=== PATIENT | female | born 1990 | race Caucasian/White ===

== ENCOUNTER 2016-05-20 22:40 | Emergency (ER) | payer OTHER ==
[2016-05-20 22:45] VITALS: BP 119/72; PULSE 72; RESP 18; TEMP 97.2
--- NOTE | 2016-05-20 23:09 | ED ---
General Adult HPI - General Chief complaint: Psychiatric Symptoms Stated complaint: suicidal Time Seen by Provider: 05/20/16 22:51 Source: patient, family, RN notes reviewed Mode of arrival: ambulatory Limitations: no limitations - History of Present Illness Initial comments: Chief complaint and history of present illness is a 25 show female here with her sister. The patient reports that she is depressed and she wants to . 8 hours ago she took 15-20 Wellbutrin. She does report that she vomited afterwards. Patient reports that she feels worthless. She states her problem started when she was 7 years old when her father by being killed by a drunk wheat combine driver. She reports she's never felt the same since then. After while she became hooked on opiates. He did spend 7 months at a facility for addictions did well there and felt good when she initially left. But now feels depressed again. 4 years ago she was seeing a psychiatrist diagnosed with depression and anxiety and personality disorder. - Related Data Home Medications Medication Instructions Recorded Confirmed ALPRAZolam [Xanax] 1 mg PO BID 05/20/16 05/20/16 buPROPion SR [Wellbutrin Sr] 150 mg PO BID 05/20/16 05/20/16 Allergies Allergy/AdvReac Type Severity Reaction Status Date / Time No Known Allergies Allergy Verified 05/20/16 22:55 Review of Systems ROS Statement: Those systems with pertinent positive or pertinent negative responses have been documented in the HPI. Review of systems. Patient denies any headache or visual acuity changes. Denies any chest pain shortness breath GI/ problems. Patient's emotionally upset, depressed. Suicidal. All systems are reviewed. Past medical problems significant for depression and anxiety and personality disorder. Patient surgeries tonsillectomy. Family history grandfather alcoholic. She has a cousin who is a heroin addict. Patient denies any ALLERGIES. Current medications include Wellbutrin and Xanax. The patient does smoke she was encouraged to stop denies alcohol use. ROS Other: All systems not noted in ROS Statement are negative. Past Medical History Past Medical History: No Reported History History of Any Multi-Drug Resistant Organisms: None Reported Past Surgical History: Tonsillectomy Past Psychological History: Anxiety, Bipolar, Depression Smoking Status: Current every day smoker Past Alcohol Use History: None Reported Past Drug Use History: None Reported General Exam - General Exam Comments Initial Comments: General: The patient is awake and alert, crying, depressed. States she suicidal. States she overdosed on Wellbutrin over 8 hours ago. Vomited afterwards. Answer questions appropriately at this time. Poison control will be consulted. Vital signs show temperature 97.2 pulse 72 respiratory rate 18 pulse ox 90% room air blood pressure 119/72 Eye: Pupils are equal, round and reactive to light, extra-ocular movements are intact ; there is normal conjunctiva bilaterally. No signs of icterus. Ears, nose, mouth and throat: There are moist mucous membranes and no oral lesions. Neck: The neck is supple, there is no tenderness , no anterior cervical lymphadenopathy, thyroid not enlarged. Cardiovascular: There is a regular rate and rhythm. No murmur, rub or gallop is appreciated. Respiratory: Lungs are clear to auscultation, respirations are non-labored, breath sounds are equal. No wheezes, stridor, rales, or rhonchi. Gastrointestinal: Soft, non-distended, non-tender abdomen without masses or organomegaly noted. There is no rebound or guarding present. No CVA tenderness. Bowel sounds are unremarkable. Back: There is no tenderness to palpation in the midline. There is no obvious deformity. No rashes noted. Musculoskeletal: Normal ROM, no tenderness, There is no pedal edema. There is no calf tenderness or swelling. Sensation intact. Pulses equal bilaterally 2+. Neurological: No evidence of a neuro deficits. Walking talking balance good. Alert and oriented. Skin: Skin is warm and dry and no rashes or lesions are noted. Psychiatric: Crying depressed, suicidal. Plan was to overdose and took 15-20 of her Wellbutrin over 8 hours ago. Vomited afterwards. Answering questions appropriately at this time and neurologically intact. Limitations: no limitations Course Vital Signs 05/20/16 22:43 Temperature 97.2 F L Pulse Rate 72 Respiratory 18 Rate Blood Pressure 119/72 O2 Sat by Pulse 98 Oximetry EKG Findings - EKG Comments: EKG Findings:: EKG was done and reviewed at 2308 showing normal sinus rhythm no acute ST elevation, no ectopy, no ischemic changes. Questionable Q wave in lead 3. Rate 79 ME interval was 158 QRS [address] Rinaldi Medical Decision Making - Medical Decision Making Poison control was notified. They recommended EKG every 6 hours for 24 hours watching for widening QRS. The patient be admitted to telemetry with suicide precautions. Disposition Clinical Impression: Overdose of antidepressant, Depression with suicidal ideation Disposition: ADMITTED IP TO THIS HOSP Condition: Serious
[2016-05-20 23:39] LABS: Acetaminophen 20.2 ug/mL; Salicylate <1.0 mg/dL
[2016-05-20] MEDS ORDERED: NALOXONE 0.4 MG/ML 1 ML VIAL IV PRN (23:39)
[2016-05-20 23:44] LABS: Basophils # (A) 0.1 k/uL (0-0.2); Basophils % (A) 1 %; CH 29.9; CHCM 32.1; Eosinophils # (A) 0.6 k/uL (0-0.7); Eosinophils % (A) 10 %; HCT 37.3 % (34.0-46.0); HDW 2.16; HGB 12.2 gm/dL (11.4-16.0); Luc # (Auto) 0.13; Luc % (Auto) 2; Lymphocytes # (A) 2.5 k/uL (1.0-4.8); Lymphocytes % (A) 42 %; MCH 30.5 pg (25.0-35.0); MCHC 32.7 g/dL (31.0-37.0); MCV 93.5 fL (80.0-100.0); Mean Platelet Volume 6.8; Monocytes # (A) 0.3 k/uL (0-1.0); Monocytes % (A) 4 %; Neutrophils # (A) 2.4 k/uL (1.3-7.7); Neutrophils % (A) 40 %; RBC 3.99 m/uL (3.80-5.40); RDW 13.5 % (11.5-15.5); WBC (Perox) 6.18
[2016-05-20] MEDS ORDERED: SODIUM CHLORIDE 0.9% 1,000 ML IV SCH (23:45)
[2016-05-20 23:54] LABS: ALT 70 U/L (9-52); AST 48 U/L (14-36); Alkaline Phosphatase 61 U/L (38-126); Anion Gap 8 mmol/L; Blood Urea Nitrogen 14 mg/dL (7-17); Carbon Dioxide 26 mmol/L (22-30); Chloride 106 mmol/L (98-107); Glucose 103 mg/dL (74-99); Non-African American GFR(MDRD) >60 (>60 ml/min/1.73 sqM); Potassium 3.7 mmol/L (3.5-5.1); Sodium 140 mmol/L (137-145); Total Bilirubin 0.4 mg/dL (0.2-1.3); Total Protein 6.4 g/dL (6.3-8.2)
[2016-05-21] MEDS ORDERED: ALPRAZolam 0.25 MG TAB PO SCH (09:00)
[2016-05-21] MEDS ORDERED: FAMOTIDINE 20 MG TAB PO SCH (09:00)
== END 2016-05-21 00:48 | disposition other institution (70) ==
LOC: EC 22:40 → 6ICU 23:39 → UNDOADMIN 23:39 → EC 05-21 00:48
DX: F32.9 Major depressive disorder, single episode, unspecified (principal); F41.9 Anxiety disorder, unspecified; F17.200 Nicotine dependence, unspecified, uncomplicated; Z79.899 Other long term (current) drug therapy
CPT/HCPCS: 36415; 80053; 82075; 83520; 85025; 93005; 99285

== ENCOUNTER 2016-10-03 15:28 | Emergency (ER) | payer OTHER ==
[2016-10-03 15:36] VITALS: TEMP 98.1
--- NOTE | 2016-10-03 15:54 | ED ---
General Adult HPI - General Chief complaint: Extremity Injury, Lower Stated complaint: foot injury Time Seen by Provider: 10/03/16 15:38 Source: patient, RN notes reviewed Mode of arrival: wheelchair Limitations: no limitations - History of Present Illness Initial comments: Patient 26-year-old female who presents emergency room today with chief complaint of injury to the right ankle that occurred just prior to arrival. She does admit that she was at work when she rolled her right ankle. She does admit to pain to the lateral aspect of the right ankle and down to the right foot. Patient denies any other complaints or symptoms. - Related Data Home Medications Medication Instructions Recorded Confirmed ALPRAZolam [Xanax] 1 mg PO BID 05/20/16 05/20/16 buPROPion SR [Wellbutrin Sr] 150 mg PO BID 05/20/16 05/20/16 Previous Rx's Medication Instructions Recorded Ibuprofen [Motrin] 600 mg PO Q6HR PRN #30 day 10/03/16 Allergies Allergy/AdvReac Type Severity Reaction Status Date / Time hydrocodone Allergy Unknown Verified 10/03/16 16:06 Penicillins Allergy Anaphylaxis Verified 10/03/16 15:36 tramadol Allergy Rash/Hives Verified 10/03/16 16:23 Review of Systems ROS Statement: Those systems with pertinent positive or pertinent negative responses have been documented in the HPI. ROS Other: All systems not noted in ROS Statement are negative. Past Medical History Past Medical History: No Reported History, Seizure Disorder History of Any Multi-Drug Resistant Organisms: None Reported Past Surgical History: Adenoidectomy, Tonsillectomy Past Psychological History: Anxiety, Bipolar, Depression Smoking Status: Current every day smoker Past Alcohol Use History: Rare Past Drug Use History: None Reported General Exam - General Exam Comments Initial Comments: General: The patient is awake and alert, in no distress, and does not appear acutely ill. Neck: The neck is supple, there is no tenderness or JVD. Cardiovascular: There is a regular rate and rhythm. No murmur, rub or gallop is appreciated. Respiratory: Lungs are clear to auscultation, respirations are non-labored, breath sounds are equal. No wheezes, stridor, rales, or rhonchi. Musculoskeletal: Patient does have normal appearance of the right ankle no obvious deformity. No bruising or swelling appreciated. Patient's shows decreased range of motion will plantar dorsiflexion due to pain. Locally tender over the lateral malleolus. No tender over the medial. Tender over the fourth and fifth proximal metatarsals. Patient does have tenderness in the ATFL area sensations are intact pulses equal bilaterally 2+. Neurological: A&O x 3. CN II-XII intact, There are no obvious motor or sensory deficits. Coordination appears grossly intact. Speech is normal. Skin: Skin is warm and dry and no rashes or lesions are noted. Psychiatric: Normal mood and affect. Limitations: no limitations Course Vital Signs 10/03/16 15:33 Temperature 98.1 F Pulse Rate 139 H Respiratory 18 Rate Blood Pressure 114/72 O2 Sat by Pulse 100 Oximetry Medical Decision Making - Medical Decision Making X-rays negative for any acute fracture dislocation. Results were discussed with the patient. She'll be given ibuprofen for pain. Advised to continue ice elevate the affected area. Advised to follow-up with family doctor or orthopedics in the next 7-10 days for repeat x-rays if symptoms persist. Disposition Clinical Impression: Ankle sprain Disposition: HOME SELF-CARE Condition: Good Instructions: Ankle Sprain (ED) Additional Instructions: Please continue to ice elevate the affected area at least 4 times daily for 20 minutes at a time. Please use ankle brace when up and moving around for stability. Please do not sleep and on. Please follow-up with orthopedics or family doctor in 7-10 days if symptoms persist for repeat x-rays. Please return to emergency room for any other concerns. Prescriptions: Ibuprofen [Motrin] 600 mg PO Q6HR PRN #30 day PRN Reason: Pain Referrals: Milton Faith Jr, DO [Primary Care Provider] - 1-2 days Jared Reardon MD [Medical Doctor] - 1-2 days Time of Disposition: 16:28
--- NOTE | 2016-10-03 16:06 | XR ---
EXAMINATION TYPE: XR ankle complete RT, XR foot complete RT DATE OF EXAM: 10/03/2016 CLINICAL HISTORY: Right ankle and foot pain after rolling injury TECHNIQUE: Frontal, lateral and oblique images of the right ankle and foot are obtained. COMPARISON: Right foot x-ray July 23, 2011 FINDINGS: There is no acute fracture/dislocation evident in the right ankle. The ankle mortise appe ars within normal limits. The overlying soft tissue appears unremarkable. There is no acute fracture or dislocation evident in the right foot. The Hayes's toe is redemonstra jeannette. The joint spaces in the right foot are preserved. Overlying soft tissue is unremarkable. IMPRESSION: There is no acute fracture or dislocation in the right ankle or foot.
[2016-10-03] MEDS ORDERED: IBUPROFEN 600 MG TAB PO STA (16:26)
[2016-10-03 16:51] VITALS: BP 126/78; PULSE 102; RESP 20
== END 2016-10-03 16:49 | disposition home or self-care (01) ==
LOC: EC 15:28
DX: S93.401A Sprain of unspecified ligament of right ankle, initial encounter (principal); F32.9 Major depressive disorder, single episode, unspecified; F41.9 Anxiety disorder, unspecified; F17.200 Nicotine dependence, unspecified, uncomplicated; Z79.899 Other long term (current) drug therapy; Z88.0 Allergy status to penicillin; Z88.5 Allergy status to narcotic agent; X50.1XXA Overexertion from prolonged static or awkward postures, initial encounter; Y92.69 Other specified industrial and construction area as the place of occurrence of the external cause; Y93.01 Activity, walking, marching and hiking
CPT/HCPCS: 99283

== ENCOUNTER 2016-11-01 02:20 | Inpatient (IN) | payer MEDICAID, OTHER ==
--- NOTE | 2016-11-01 03:09 | ED ---
General Adult HPI - General Source: patient, RN notes reviewed Mode of arrival: ambulatory Limitations: no limitations <Lore Mosher - Last Filed: 11/01/16 03:07> <Gian Andre - Last Filed: 11/01/16 06:43> - General Chief complaint: Psychiatric Symptoms Stated complaint: Mental Health Time Seen by Provider: 11/01/16 02:40 - History of Present Illness Initial comments: 26-year-old female presents to the emergency department with a chief complaint of suicidal ideation. Patient states that she plan taking pulse 90. Patient states she called her aunt because she felt like she needed help. Patient states that she did not take anything. Patient states she has tried to hurt herself in the past about 5 years ago. Patient states that she was concerned about her thoughts so she thought that she should be evaluated. This time she states that she does not currently have a plan and she is starting to feel better with the supportive family.Patient denies any recent fever, chills, shortness of breath, chest pain, back pain, abdominal pain, nausea vomiting, numbness or tingling, dysuria or hematuria, constipation or diarrhea, headaches or visual changes, or any other current symptoms. (Lore Mosher) - Related Data Home Medications Medication Instructions Recorded Confirmed ALPRAZolam [Xanax] 1 mg PO BID 05/20/16 05/20/16 buPROPion SR [Wellbutrin Sr] 150 mg PO BID 05/20/16 05/20/16 Previous Rx's Medication Instructions Recorded Ibuprofen [Motrin] 600 mg PO Q6HR PRN #30 day 10/03/16 Allergies Allergy/AdvReac Type Severity Reaction Status Date / Time Penicillins Allergy Anaphylaxis Verified 11/01/16 02:26 Review of Systems ROS Other: All systems not noted in ROS Statement are negative. <Lore Mosher - Last Filed: 11/01/16 03:07> ROS Other: All systems not noted in ROS Statement are negative. <Gian Andre - Last Filed: 11/01/16 06:43> ROS Statement: Those systems with pertinent positive or pertinent negative responses have been documented in the HPI. Past Medical History Past Medical History: Seizure Disorder History of Any Multi-Drug Resistant Organisms: None Reported Past Surgical History: Adenoidectomy, Tonsillectomy Past Psychological History: Anxiety, Bipolar, Depression Smoking Status: Current every day smoker Past Alcohol Use History: Rare Past Drug Use History: Opiates <Lore Mosher - Last Filed: 11/01/16 03:07> General Exam Limitations: no limitations General appearance: alert, in no apparent distress ENT exam: Present: normal exam, mucous membranes moist Neck exam: Present: normal inspection. Absent: tenderness, meningismus, lymphadenopathy Respiratory exam: Present: normal lung sounds bilaterally. Absent: respiratory distress, wheezes, rales, rhonchi, stridor Cardiovascular Exam: Present: regular rate, normal rhythm, normal heart sounds. Absent: systolic murmur, diastolic murmur, rubs, gallop, clicks Neurological exam: Present: alert, oriented X3 Psychiatric exam: Present: agitated, suicidal ideation. Absent: homicidal ideation Skin exam: Present: warm, dry, intact <Lore Mosher - Last Filed: 11/01/16 03:07> Medical Decision Making <Lore Mosher - Last Filed: 11/01/16 03:07> <Gian Andre - Last Filed: 11/01/16 06:43> - Medical Decision Making 26-year-old female presents to the emergency department with a chief complaint of suicidal ideation. Patient does not appear septic drinking medical emergencies. Patient is cleared to be evaluated by psychiatry. (Lore Mosher) - Lab Data Lab Results 11/01/16 Range/Units 02:34 Urine Opiates Screen Detected H (NotDetected) Ur Oxycodone Screen Detected H (NotDetected) Urine Methadone Screen Not Detected (NotDetected) Ur Propoxyphene Screen Not Detected (NotDetected) Ur Barbiturates Screen Not Detected (NotDetected) U Tricyclic Antidepress Not Detected (NotDetected) Ur Phencyclidine Scrn Not Detected (NotDetected) Ur Amphetamines Screen Not Detected (NotDetected) U Methamphetamines Scrn Not Detected (NotDetected) U Benzodiazepines Scrn Detected H (NotDetected) Urine Cocaine Screen Detected H (NotDetected) U Marijuana (THC) Screen Detected H (NotDetected) Disposition <Lore Mohser - Last Filed: 11/01/16 03:07> <Gian Andre - Last Filed: 11/01/16 06:43> Clinical Impression: Suicidal ideation, Mood disorder Disposition: ADMITTED IP TO THIS HOSP Condition: Fair
[2016-11-01] MEDS ORDERED: ZIPRASIDONE 20 MG VIAL IM PRN (07:18)
[2016-11-01] MEDS ORDERED: MAGNESIUM HYDROXIDE 2,400 MG/10 ML CUP PO PRN (07:18)
[2016-11-01] MEDS ORDERED: MAG HYDROX/AL HYDROX/SIMETH 30 ML CUP PO PRN (07:18)
[2016-11-01 09:25] LABS: Basophils # (A) 0.1 k/uL (0-0.2); Basophils % (A) 1 %; CH 31.8; CHCM 33.3; Eosinophils # (A) 0.4 k/uL (0-0.7); Eosinophils % (A) 7 %; HCT 37.3 % (34.0-46.0); HDW 2.19; Luc # (Auto) 0.12; Luc % (Auto) 2; Lymphocytes # (A) 2.5 k/uL (1.0-4.8); Lymphocytes % (A) 38 %; MCH 30.9 pg (25.0-35.0); MCHC 32.2 g/dL (31.0-37.0); MCV 95.9 fL (80.0-100.0); Mean Platelet Volume 8.1; Monocytes # (A) 0.4 k/uL (0-1.0); Monocytes % (A) 6 %; Neutrophils % (A) 47 %; RBC 3.89 m/uL (3.80-5.40); RDW 14.8 % (11.5-15.5); WBC 6.5 k/uL (3.8-10.6); WBC (Perox) 6.91
[2016-11-01 10:00] LABS: ALT 29 U/L (9-52); AST 17 U/L (14-36); Alkaline Phosphatase 44 U/L (38-126); Anion Gap 7 mmol/L; Blood Urea Nitrogen 18 mg/dL (7-17); Calcium 8.8 mg/dL (8.4-10.2); Carbon Dioxide 25 mmol/L (22-30); Chloride 110 mmol/L (98-107); Glucose 81 mg/dL (74-99); Non-African American GFR(MDRD) >60 (>60 ml/min/1.73 sqM); Potassium 3.7 mmol/L (3.5-5.1); Sodium 142 mmol/L (137-145); Total Bilirubin 0.2 mg/dL (0.2-1.3); Total Protein 5.8 g/dL (6.3-8.2)
[2016-11-01] MEDS: NICOTINE 14MG/24HR PATCH TRANSDERM SCH ×2 (11:23→13:39)
[2016-11-01] MEDS: DIAZEPAM 5 MG TAB PO SCH ×3 (11:23→22:28)
[2016-11-01] MEDS ORDERED: hydrOXYzine PAMOATE 25 MG CAP PO PRN (14:16)
[2016-11-01] MEDS: ACETAMINOPHEN TAB 325 MG TAB PO PRN ×2 (14:24→19:00)
[2016-11-01] MEDS: LORazepam 1 MG TAB PO PRN (14:24)
[2016-11-01] MEDS: FLUoxetine HCL 10 MG CAP PO SCH (14:27)
[2016-11-01] MEDS: ARIPiprazole 2 MG TAB PO SCH (14:33)
--- NOTE | 2016-11-01 17:44 | P.CONS ---
History of Present Illness - Reason for Consult Consult date: 11/01/16 Advice regarding polysubstance abuse - History of Present Illness This 26-year-old woman with a past medical history multiple medical problems including polysubstance abuse and other medical issues followed by Dr. Patiño was sent with her for psychiatric evaluation. The patient reports withdrawal symptoms from heroin. There is no history of chest pain palpitation headache loss of consultations. Review of Systems REVIEW OF SYSTEMS: ENT: No diminished vision or hearing. CARDIOVASCULAR: Mentioned earlier. RESPIRATORY: As mentioned earlier. GI: No nauscea, vomiting or diarrhea. : No dysuria or retention. NERVOUS SYSTEM: No numbness or weakness. ALLERGY/IMMUNOLOGY: No asthma or hay fever. MUSCULOSKELETAL: As mentioned earlier. HEMATOLOGY/ONCOLOGY: No history of anemia. ENDOCRINE: No history of diabetes or hypothyroidism. CONSTITUTIONAL: As mentioned earlier. DERMATOLOGY: Negative. PSYCHIATRY: Mentioned earlier. RHEUMATOLOGY: Negative. Past Medical History Past Medical History: Seizure Disorder History of Any Multi-Drug Resistant Organisms: None Reported Past Surgical History: Adenoidectomy, Tonsillectomy Past Psychological History: Anxiety, Bipolar, Depression Smoking Status: Current every day smoker Past Alcohol Use History: Rare Past Drug Use History: Opiates Medications and Allergies Home Medications Medication Instructions Recorded Confirmed Type ALPRAZolam [Xanax] 1 mg PO BID 05/20/16 11/01/16 History buPROPion SR [Wellbutrin Sr] 150 mg PO BID 05/20/16 11/01/16 History Buprenorphine HCl/Naloxone HCl 1 film SL BID PRN 11/01/16 11/01/16 History [Suboxone 8 mg-2 mg Sl Film] Ondansetron Odt [Zofran Odt] 4 mg PO BID PRN 11/01/16 11/01/16 History traZODone HCL 50 mg PO HS 11/01/16 11/01/16 History Allergies Allergy/AdvReac Type Severity Reaction Status Date / Time Penicillins Allergy Anaphylaxis Verified 11/01/16 02:26 Physical Exam Vitals: Vital Signs Temp Pulse Pulse Pulse Pulse Pulse Resp 11/01/16 16:26 74 16 11/01/16 14:21 93 88 80 16 11/01/16 07:44 97.4 F L 105 H 18 11/01/16 06:41 97.8 F 93 18 11/01/16 02:23 98.1 F 108 H 18 BP BP BP BP BP Pulse Ox 11/01/16 16:26 87/49 11/01/16 14:21 97/63 104/62 100/59 11/01/16 07:44 128/86 98 11/01/16 06:41 90/54 97 11/01/16 02:23 121/78 98 Intake and Output 11/01/16 11/01/16 11/01/16 06:59 14:59 22:59 Other: Weight 53.07 kg On exam, alert and oriented x3. HEENT: Conjunctivae normal. eyes normal. NECK: No JVD. No thyroid enlargement. No LNs CARDIOVASCULAR: S1, S2 muffled. No murmur RESPIRATION: Breath sounds diminished in the bases. No rhonchi or crackles. No bronchial breathing. ABDOMEN: Soft, nontender . No guarding. no masses palpable. No ascites, No hepatosplenomegaly.Bowel sounds heard. LEGS: No edema. no swelling NERVOUS SYSTEM: Cranial N 2-12 grossly normal. Moves all 4 limbs. No focal deficits. No sensory deficit. No signs of cerebellar dysfucntion. Skin: no ulcer no rash Joints: No active swelling. No inflammation. Lymphatic system. No LN neck axilla or groin. Results CBC & Chem 7: 11/01/16 09:11 11/01/16 09:11 Labs: Abnormal Lab Results - Last 24 Hours (Table) 11/01/16 11/01/16 Range/Units 02:34 09:11 Chloride 110 H (98-107) mmol/L BUN 18 H (7-17) mg/dL Total Protein 5.8 L (6.3-8.2) g/dL Urine Opiates Screen Detected H (NotDetected) Ur Oxycodone Screen Detected H (NotDetected) U Benzodiazepines Scrn Detected H (NotDetected) Urine Cocaine Screen Detected H (NotDetected) U Marijuana (THC) Screen Detected H (NotDetected) Assessment and Plan Plan: Assessment 1. Polysubstance abuse 2. Withdrawals 3. Anxiety bipolar depression for psych evaluation 4. Mild hypotension possibly secondary to poor by mouth intake. Plan I would recommend to continue the current medications. Active and may be used for withdrawals. Patient also had like to hypertension. Would recommend IV fluids for stabilization. We will closely monitor further recommendations to follow
[2016-11-02 09:21] LABS: Hepatitis B Surface Ag Index 0.07
[2016-11-02] MEDS: ARIPiprazole 2 MG TAB PO SCH (09:21)
[2016-11-02] MEDS: DIAZEPAM 5 MG TAB PO SCH ×2 (09:21→16:04)
[2016-11-02] MEDS: NICOTINE 14MG/24HR PATCH TRANSDERM SCH (09:21)
[2016-11-02] MEDS: FLUoxetine HCL 10 MG CAP PO SCH (09:21)
[2016-11-02 09:27] LABS: Hepatitis B Core IgM Index 0.02
[2016-11-02 09:38] LABS: Hepatitis C Virus IgG Ab Negative (Negative); Hepatitis C Virus IgG Index 0.03
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
[2016-11-02] MEDS: LORazepam 1 MG TAB PO PRN (13:57)
[2016-11-02] MEDS: OLANZapine 5 MG TAB PO SCH ×2 (16:12→20:48)
[2016-11-02] MEDS: cloNIDine HCL 0.1 MG TAB PO SCH ×2 (16:12→20:57)
--- NOTE | 2016-11-02 16:44 | PN ---
DATE OF SERVICE: 11/02/2016 CHIEF COMPLAINT: The patient was admitted due to increasing problems with depression. She was hopeless. She had significant anxiety with panic attacks. She has significant substance abuse issues including crack cocaine, benzodiazepines and opioids including heroin. INTERVAL HISTORY: The patient has been doing fair. She struggled last evening. She slept poorly. She tends to isolate. She did attend one group today and was appropriate in group. She contributed some. Her CIWA score at 7:00 p.m. last evening was 24. Since then the scores have been 1 at 4:00 a.m.; 0 at 11:30 ; and 12 at 2:00 p.m. She reports moderate withdraw symptoms. Her mood is down. She continues with anxiety. She has not had panic symptoms. She has not had change in her general health. She tolerates the psychotropic medications. MENTAL STATUS: Patient gave fair eye contact, psychomotor activity was slow. Speech was monotone. She answered questions with brief responses. Her thoughts were clear. Her affect was flat. Her mood depressed. She was moderately distressed. ASSESSMENT AND PLAN: I will continue the current diagnosis and treatment plan. We will continue to make efforts to engage the patient in individual and group therapeutic activities. I will discontinue Abilify, Valium, and Vistaril. I will start the patient on Zyprexa 5 mg three times a day. The aim of Zyprexa is to help reduce physiologic stress response as it relates to substance withdrawal as well as panic symptoms. In addition, I would look for Zyprexa to help Augment her antidepressant. In addition I will start the patient on Clonidine 0.1 mg three times a day. The aim of Clonidine is to help manage and reduce early substance withdrawal issues particularly relating to opioids. I will continue Prozac 10 mg a day. I reviewed medication issues with the patient including indications, side effects, risk and potential benefits. I discussed with the patient the possibility of [facility] treatment options for which she is in agreement. She acknowledges that she has significant substance use issues and has not been able to stabilize things with short term programs that she has been into which have been a multitude. JUANJO
[2016-11-03 07:14] VITALS: RESP 16
[2016-11-03] MEDS: OLANZapine 5 MG TAB PO SCH (10:20)
[2016-11-03] MEDS: NICOTINE 14MG/24HR PATCH TRANSDERM SCH (10:20)
[2016-11-03] MEDS: cloNIDine HCL 0.1 MG TAB PO SCH ×3 (10:21→20:54)
[2016-11-03] MEDS: FLUoxetine HCL 10 MG CAP PO SCH (10:21)
[2016-11-03] MEDS: LORazepam 1 MG TAB PO PRN ×3 (10:22→20:37)
[2016-11-03] MEDS: ACETAMINOPHEN TAB 325 MG TAB PO PRN (10:24)
--- NOTE | 2016-11-03 15:47 | PN ---
DATE OF SERVICE: 11/03/16 CHIEF COMPLAINT: The patient was admitted due to increasing problems with depression. She was hopeless. She had significant anxiety with panic attacks. She has significant substance abuse issues including use of crack cocaine, benzodiazepines and opioids including heroin. INTERVAL HISTORY: The patient has been doing better. She had a quiet evening last night. She slept fairly well today. She has been up and about. She says she has a better mood and better outlook. She has been going to groups. She comes out in the day area. She will interact with others. She seems more comfortable. She is less down and reserved compared to how she presented yesterday. She is hopeful that she might be able to find a extermination supervisor substance abuse program such as [facility]. She is aware of a [facility] program in [place] that she would like to go do. She was given the number for [facility] and we will make contact with them today as part of her trying to get a referral for [facility]. She has not had change in her general health. She tolerates psychotropic medications. Though she does say she feels a little tired after she gets her Zyprexa doses. MENTAL STATUS: The patient was neatly dressed and groomed. Eye contract was good. Psychomotor activity was in normal range. She answered questions with direct responses. Her affect was a little constricted though she showed more emotional responsiveness. Her mood was somewhat reserved though improved from yesterday. She did not appear distress. ASSESSMENT: We will continue the current diagnosis and treatment plan. We will switch her Zyprexa so that she will get 5 mg in the morning and 7.5 mg at bedtime, that is 2.5 mg reduction in her total daily dose. She will continue other psychotropic medications the same. The patient will be contacting [facility] as part of a plan for getting referral to substance use treatment. The patient understands that [facility] is essentially the lodging house keeper for any substance use referral programs. Apparently she does have some pending legal issues as well. There is no specific information that we have in regards to how it may impact discharge planning. We will continue to focus on stabilization and referral for substance abuse follow-up. JUANJO
[2016-11-03 17:34] LABS: Appearance,Urine Cloudy (Clear); Bilirubin,Urine Negative (Negative); Glucose,Urine (UA) Negative (Negative); Ketones,Urine 1+ (Negative); Leukocyte Esterase,Urine Negative (Negative); Mucus,Urine Many /hpf; Nitrite,Urine Negative (Negative); PH, Urine 6.5 (5.0-8.0); Particle Count 17661; Protein,Urine 1+ (Negative); RBC,Urine 5 /hpf (0-5); Specific Gravity,Urine 1.019 (1.001-1.035); UA Billing (MACRO vs. MICRO) MICRO; WBC,Urine 37 /hpf (0-5)
[2016-11-03] MEDS ORDERED: OLANZapine 2.5 MG TAB PO SCH (21:00)
[2016-11-04 06:40] VITALS: TEMP 98.3
[2016-11-04] MEDS: cloNIDine HCL 0.1 MG TAB PO SCH (08:42)
[2016-11-04] MEDS: NICOTINE 14MG/24HR PATCH TRANSDERM SCH (08:44)
[2016-11-04] MEDS: FLUoxetine HCL 10 MG CAP PO SCH (08:44)
[2016-11-04] MEDS: LORazepam 1 MG TAB PO PRN (08:44)
[2016-11-04 08:46] VITALS: BP 100/65; PULSE 88
[2016-11-04] MEDS ORDERED: OLANZapine 5 MG TAB PO SCH (09:00)
[2016-11-04] MEDS ORDERED: OLANZapine 10 MG TAB PO SCH (21:00)
== END 2016-11-04 13:15 | disposition home or self-care (01) | DRG 885 ==
LOC: EC 02:20 → 3MHU 06:41
PROVIDERS: ADMIT Psychiatry & Neurology Psychiatry; ATTEND Psychiatry & Neurology Psychiatry
DX: F33.2 Major depressive disorder, recurrent severe without psychotic features (principal); G40.909 Epilepsy, unspecified, not intractable, without status epilepticus; R45.851 Suicidal ideations; F17.200 Nicotine dependence, unspecified, uncomplicated; F41.0 Panic disorder [episodic paroxysmal anxiety]; F14.10 Cocaine abuse, uncomplicated; F12.90 Cannabis use, unspecified, uncomplicated; F11.10 Opioid abuse, uncomplicated; Z79.899 Other long term (current) drug therapy; Z59.0 Homelessness; Z88.0 Allergy status to penicillin; Z81.8 Family history of other mental and behavioral disorders
CPT/HCPCS: 80053; 80074; 80306; 81001; 82075; 84443; 85025; 87390; 99285

== ENCOUNTER 2019-05-25 13:39 | Inpatient (IN) | payer MEDICAID, OTHER ==
--- NOTE | 2019-05-25 14:57 | ED ---
Altered Mental Status HPI - General Source: patient, EMS, RN notes reviewed Mode of arrival: EMS Limitations: no limitations <Dilshad Cloud - Last Filed: 05/25/19 14:55> <Darion Rey - Last Filed: 05/25/19 17:26> - General Chief Complaint: Altered Mental Status Stated Complaint: Lethargic Time Seen by Provider: 05/25/19 14:01 - History of Present Illness Initial Comments: This a 28-year-old female presents emergency department for psychiatric evaluation. Patient is she recently was discharged from a long-term rehab facility for drug abuse. Patient states she got up a little over one week ago. Patient states that she her friend came over and states that she started taking multiple pills. She states she's taken approximately 12 Xanax in the last 24 hours. Patient states that she does want to harm herself she states that she was expecting to get an apartment and states that she did not get it which cause her to downward spiral. Patient denies any current alcohol use denies any physical complaints. Patient offers no other current drug use. (Dilshad Cloud) - Related Data Home Medications Medication Instructions Recorded Confirmed Loratadine 10 mg PO DAILY 05/25/19 05/25/19 Sertraline [Zoloft] 200 mg PO DAILY 05/25/19 05/25/19 Allergies Allergy/AdvReac Type Severity Reaction Status Date / Time Penicillins Allergy Anaphylaxis Verified 05/25/19 17:14 Review of Systems ROS Other: All systems not noted in ROS Statement are negative. <Dilshad Cloud - Last Filed: 05/25/19 14:55> ROS Other: All systems not noted in ROS Statement are negative. <Darion Rey - Last Filed: 05/25/19 17:26> ROS Statement: Those systems with pertinent positive or pertinent negative responses have been documented in the HPI. Past Medical History Past Medical History: Seizure Disorder History of Any Multi-Drug Resistant Organisms: None Reported Past Surgical History: Adenoidectomy, Tonsillectomy Past Psychological History: Anxiety, Bipolar, Depression Smoking Status: Current every day smoker Past Alcohol Use History: Rare Past Drug Use History: Opiates <Dilshad Cloud - Last Filed: 05/25/19 14:55> General Exam Limitations: no limitations General appearance: alert, in no apparent distress Head exam: Present: atraumatic, normocephalic, normal inspection Eye exam: Present: normal appearance, PERRL, EOMI. Absent: scleral icterus, conjunctival injection, periorbital swelling ENT exam: Present: normal exam, mucous membranes moist Neck exam: Present: normal inspection. Absent: tenderness, meningismus, lymphadenopathy Respiratory exam: Present: normal lung sounds bilaterally. Absent: respiratory distress, wheezes, rales, rhonchi, stridor Cardiovascular Exam: Present: regular rate, normal rhythm, normal heart sounds. Absent: systolic murmur, diastolic murmur, rubs, gallop, clicks GI/Abdominal exam: Present: soft, normal bowel sounds. Absent: distended, tenderness, guarding, rebound, rigid Back exam: Absent: CVA tenderness (R), CVA tenderness (L) Neurological exam: Present: alert, oriented X3, CN II-XII intact Skin exam: Present: warm, dry, intact, normal color. Absent: rash <Dilshad Cloud - Last Filed: 05/25/19 14:55> Course Vital Signs 05/25/19 13:51 Temperature 97 F L Pulse Rate 100 Respiratory 14 Rate Blood Pressure 136/95 O2 Sat by Pulse 94 L Oximetry Medical Decision Making <Darion Rey - Last Filed: 05/25/19 17:26> - Medical Decision Making 28 female to the ED for psychiatric evaluation and overdose attempt, patient to be admitted for psychiatric evaluation and treatment (Darion Rey) Disposition <Dilshad Colud - Last Filed: 05/25/19 14:55> Is patient prescribed a controlled substance at d/c from ED?: No <Darion Rey - Last Filed: 05/25/19 17:26> Clinical Impression: Mood disorder, Altered mental status Disposition: TRANSFER TO PSYCH HOSP/UNIT Condition: Fair Referrals: Sherri Hatfield MD [Primary Care Provider] - 1-2 days
[2019-05-25] MEDS ORDERED: ZIPRASIDONE 20 MG VIAL IM PRN (17:44)
[2019-05-25] MEDS ORDERED: LORazepam 0.5 MG TAB PO PRN (17:44)
[2019-05-25] MEDS ORDERED: NICOTINE 14MG/24HR PATCH TRANSDERM SCH (17:45)
[2019-05-25 18:00] LABS: Amphetamine Screen,Urine Detected (NotDetected); Barbiturate Screen,Urine Not Detected (NotDetected); Benzodiazepines Screen,Urine Detected (NotDetected); Cocaine Screen,Urine Detected (NotDetected); Methadone Screen, Urine Detected (NotDetected); Opiate Screen,Urine Not Detected (NotDetected); Oxycodone Screen, Urine Not Detected (NotDetected); Phencyclidine Screen,Urine Not Detected (NotDetected); Tricyclic Antidepressant,Urine Not Detected (NotDetected); Urn Cannabinoid Scrn Not Detected (NotDetected)
[2019-05-26] MEDS: NICOTINE 21MG/24HR PATCH TRANSDERM SCH (08:05)
[2019-05-26] MEDS: SERTRALINE 100 MG TAB PO SCH (08:05)
[2019-05-26] MEDS: OLANZapine 10 MG TAB PO SCH ×2 (08:05→16:53)
[2019-05-26] MEDS: LORATADINE 10 MG TAB PO SCH (08:05)
[2019-05-26] MEDS: METHADONE 10 MG TAB PO SCH (08:06)
[2019-05-26] MEDS ORDERED: METHADONE HCL PO SCH (09:00)
[2019-05-26 09:24] LABS: Basophils # (A) 0.1 k/uL (0-0.2); Basophils % (A) 1 %; Eosinophils # (A) 0.2 k/uL (0-0.7); Eosinophils % (A) 4 %; HCT 43.9 % (34.0-46.0); Lymphocytes # (A) 1.6 k/uL (1.0-4.8); Lymphocytes % (A) 28 %; MCH 28.2 pg (25.0-35.0); MCHC 31.9 g/dL (31.0-37.0); MCV 88.3 fL (80.0-100.0); Mean Platelet Volume 8.1; Monocytes # (A) 0.4 k/uL (0-1.0); Monocytes % (A) 8 %; Neutrophils # (A) 3.3 k/uL (1.3-7.7); Neutrophils % (A) 57 %; Platelet Count 216 k/uL (150-450); RBC 4.97 m/uL (3.80-5.40); RDW 12.9 % (11.5-15.5); WBC 5.8 k/uL (3.8-10.6)
[2019-05-26 09:34] LABS: ALT 99 U/L (4-34); AST 118 U/L (14-36); African American GFR (CKD) >90 (>60 ml/min/1.73 sqM); Albumin 4.9 g/dL (3.5-5.0); Alkaline Phosphatase 110 U/L (38-126); Anion Gap 14 mmol/L; Blood Urea Nitrogen 15 mg/dL (7-17); Calcium 9.9 mg/dL (8.4-10.2); Carbon Dioxide 21 mmol/L (22-30); Chloride 106 mmol/L (98-107); Glucose 101 mg/dL (74-99); Non-African American GFR(CKD) 90 (>60 ml/min/1.73 sqM); Potassium 3.9 mmol/L (3.5-5.1); Sodium 141 mmol/L (137-145); Total Bilirubin 1.2 mg/dL (0.2-1.3); Total Protein 8.1 g/dL (6.3-8.2)
[2019-05-26] MEDS: ACETAMINOPHEN TAB 325 MG TAB PO PRN (09:53)
[2019-05-26 10:14] LABS: Cholesterol 220 mg/dL (<200); HDL Cholesterol 37 mg/dL (40-60); LDL Cholesterol,Calculated 167 mg/dL (0-99); Triglycerides 81 mg/dL (<150)
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
--- NOTE | 2019-05-26 15:16 | P.HPIM ---
History of Present Illness H&P Date: 05/26/19 Chief Complaint: Altered mental status/lethargy 28-year-old female presents emergency department for psychiatric evaluation. Patient is she recently was discharged from a long-term rehab facility for drug abuse. Patient states she got up a little over one week ago. Patient states that she her friend came over and states that she started taking multiple pills. She states she's taken approximately 12 Xanax in the last 24 hours. Patient states that she does want to harm herself she states that she was expecting to get an apartment and states that she did not get it which cause her to downward spiral. Patient denies any current alcohol use denies any physical complaints. Patient offers no other current drug use. Review of Systems REVIEW OF SYSTEMS: CONSTITUTIONAL: No fever, no malaise, no fatigue. HEENT: No recent visual problems or hearing problems. Denied any sore throat. CARDIOVASCULAR: No chest pain, orthopnea, PND, no palpitations, no syncope. PULMONARY: No shortness of breath, no cough, no hemoptysis. GASTROINTESTINAL: No diarrhea, no nausea, no vomiting, no abdominal pain. NEUROLOGICAL: No headaches, no weakness, no numbness. HEMATOLOGICAL: Denies any bleeding or petechiae. GENITOURINARY: Denies any burning micturition, frequency, or urgency. MUSCULOSKELETAL/RHEUMATOLOGICAL: Denies any joint pain, swelling, or any muscle pain. ENDOCRINE: Denies any polyuria or polydipsia. The rest of the 14-point review of systems is negative. . Past Medical History Past Medical History: Seizure Disorder History of Any Multi-Drug Resistant Organisms: None Reported Past Surgical History: Adenoidectomy, Tonsillectomy Past Psychological History: Anxiety, Bipolar, Depression Smoking Status: Current every day smoker Past Alcohol Use History: Rare Past Drug Use History: Opiates Medications and Allergies Home Medications Medication Instructions Recorded Confirmed Type Loratadine 10 mg PO DAILY 05/25/19 05/25/19 History Methadone HCl [Methadone Intensol] 112 mg PO DAILY 05/25/19 05/25/19 History Sertraline [Zoloft] 200 mg PO DAILY 05/25/19 05/25/19 History Allergies Allergy/AdvReac Type Severity Reaction Status Date / Time Penicillins Allergy Anaphylaxis Verified 05/25/19 17:14 Physical Exam Vitals: Vital Signs Temp Pulse Pulse Resp BP BP Pulse Ox 05/26/19 11:06 98.0 F 120 H 12 137/69 97 05/26/19 08:05 129 H 107/57 05/26/19 06:42 97.7 F 79 16 113/59 05/25/19 21:01 123 H 16 90/60 05/25/19 18:20 97.6 F 117 H 16 99 05/25/19 13:51 97 F L 100 14 136/95 94 L Intake and Output 05/25/19 05/26/19 05/26/19 22:59 06:59 14:59 Other: Weight 84 kg PHYSICAL EXAMINATION: GENERAL: The patient is alert and oriented x3, not in any acute distress. Well developed, well nourished. HEENT: Pupils are round and equally reacting to light. EOMI. No scleral icterus. No conjunctival pallor. Normocephalic, atraumatic. No pharyngeal erythema. No thyromegaly. CARDIOVASCULAR: S1 and S2 present. No murmurs, rubs, or gallops. PULMONARY: Chest is clear to auscultation, no wheezing or crackles. ABDOMEN: Soft, nontender, nondistended, normoactive bowel sounds. No palpable organomegaly. MUSCULOSKELETAL: No joint swelling or deformity. EXTREMITIES: No cyanosis, clubbing, or pedal edema. NEUROLOGICAL: Gross neurological examination did not reveal any focal deficits. SKIN: No rashes Results CBC & Chem 7: 05/26/19 08:11 05/26/19 08:11 Labs: Abnormal Lab Results - Last 24 Hours (Table) 05/25/19 05/26/19 Range/Units 17:39 08:11 Carbon Dioxide 21 L (22-30) mmol/L Glucose 101 H (74-99) mg/dL AST 118 H (14-36) U/L ALT 99 H (4-34) U/L Cholesterol 220 H (<200) mg/dL LDL Cholesterol, Calc 167 H (0-99) mg/dL HDL Cholesterol 37 L (40-60) mg/dL Urine Methadone Screen Detected H (NotDetected) Ur Amphetamines Screen Detected H (NotDetected) U Benzodiazepines Scrn Detected H (NotDetected) Urine Cocaine Screen Detected H (NotDetected) Assessment and Plan Assessment: 1. Anxiety/depression; patient remains on Zyprexa, Zoloft and trazodone 2. Seasonal ALLERGY; continue with home dose of loratadine 10 mg daily 3. GERD/constipation; milk of magnesia when necessary, Maalox 30 minutes by mouth every 4 hours when necessary 4. Tobacco abuse; nicotine patch 5. Borderline hypertension; monitor blood pressure closely CODE STATUS; full code
[2019-05-26 17:12] LABS: Hemoglobin A1C 5.7 % (4.0-6.0)
[2019-05-26] MEDS: OLANZapine 5 MG TAB PO SCH (20:49)
[2019-05-26] MEDS: traZODone HCL 50 MG TAB PO SCH (20:50)
[2019-05-26 21:53] LABS: Appearance,Urine Clear (Clear); Bilirubin,Urine Negative (Negative); Blood,Urine Negative (Negative); Color,Urine Yellow; Glucose,Urine (UA) Negative (Negative); Hyaline Casts,Urine 4 /lpf (0-2); Ketones,Urine Negative (Negative); Leukocyte Esterase,Urine Trace (Negative); Mucus,Urine Few /hpf; Nitrite,Urine Negative (Negative); Protein,Urine Negative (Negative); RBC,Urine <1 /hpf (0-5); Specific Gravity,Urine 1.022 (1.001-1.035); Squamous Epithelial Cell,Urine 2 /hpf (0-4); WBC,Urine 3 /hpf (0-5)
[2019-05-26] MEDS ORDERED: hydrOXYzine PAMOATE 25 MG CAP PO ONE (22:08)
[2019-05-26] MEDS: MAG HYDROX/AL HYDROX/SIMETH 30 ML CUP PO PRN (22:39)
[2019-05-27] MEDS: NICOTINE 21MG/24HR PATCH TRANSDERM SCH (08:47)
[2019-05-27] MEDS: SERTRALINE 100 MG TAB PO SCH (08:47)
[2019-05-27] MEDS: LORATADINE 10 MG TAB PO SCH (08:48)
[2019-05-27] MEDS: METHADONE 10 MG TAB PO SCH (08:48)
[2019-05-27] MEDS: OLANZapine 5 MG TAB PO SCH ×3 (08:48→20:59)
--- NOTE | 2019-05-27 13:19 | P.PN ---
Progress Note - Text Progress Note Date: 05/27/19 Subjective: Patient was seen today as a cross coverage for . The patient was evaluated, chart reviewed, case discussed with the treatment team. Patient reported poor sleep, and according to chart review patient slept about 6 hours last night. Appetite was reported as " poor". Patient has not been going to groups and other unit activities. The patient is compliant with her medications and denies any adverse reactions. Patient reports continued to feel extremely anxious and irritable which is related to withdrawal symptoms from benzodiazepines. She claimed that she overdosed on 20 bars of Xanax prior to this admission. She reports physical symptoms of nausea, diarrhea, shakiness, and running nose. Patient reports continued to feel depressed because of withdrawal symptoms but denies suicidal or homicidal ideation. She denies any hallucinations, paranoid ideation, and no delusions could be elicited. Patient hasn't incidence of severe tachycardia yesterday 120/minute, and EKG was obtained. No further recommendations from medical team. Objective: Vitals has been reviewed. Mental status examination: Appearance: The patient appears stated age, adequately groomed and dressed, no specific features. Gait/posture: Normal gait, Normal arm swinging: No abnormal movements. Attitude and behavior: Not fully engaged, superficial cooperative, eye contact. Motor activity: Increased psychomotor activity Speech: Normal rate, tone. Mood: Anxious Affect: Restricted Thought form: goal-directed, linear, coherent. Thought content: Non-delusional, denies suicidal thoughts, denies homicidal thoughts, denies intentions or plans. Perception: Denies any auditory or visual hallucinations Attention: No impairment. Orientation: Patient patient was fully oriented to time place person and situation. Insight: Patient has fair insight about her psychiatric disorder. Judgment: Patient has fair judgment about her psychiatric treatment. Assessment: Major depressive disorder, recurrent, moderate-severe without psychotic features. Panic disorder. PTSD. Opioid use disorder, on agonist therapy methadone maintenance treatment. Rule out cocaine use disorder. Rule out sedative-hypnotics use disorder. Plan: Continue inpatient level of care due to need for further treatment and stabilization provide psychiatric education regarding her diagnosis Precautions: Continue 15 minutes check for safety. Consider medical consultation if any acute medical issues arise. Provide the patient individual, group therapy, substance use disorder counseling to give better insight and learn coping skills. Medications: Continue Zoloft 200 mg daily for depression and anxiety symptoms. Continue trazodone 50 mg at bedtime to help with the depression and insomnia. Continue Zyprexa 5 mg 3 times a day 20 for mood stabilization. Patient is currently maintained on methadone 110 mg daily. We will start Vistaril 25 mg 3 times daily as needed for anxiety. Start Neurontin 100 mg 3 times a day to help with anxiety symptoms and withdrawal symptoms. Discharge patient to OUTPATIENT services upon a stabilization
[2019-05-27] MEDS: hydrOXYzine PAMOATE 25 MG CAP PO PRN ×2 (13:49→21:00)
[2019-05-27] MEDS: ACETAMINOPHEN TAB 325 MG TAB PO PRN ×2 (13:50→21:02)
[2019-05-27] MEDS: GABAPENTIN 100 MG CAP PO SCH ×2 (15:53→20:59)
[2019-05-27] MEDS: traZODone HCL 50 MG TAB PO SCH (20:59)
[2019-05-28] MEDS: NICOTINE 21MG/24HR PATCH TRANSDERM SCH (08:40)
[2019-05-28] MEDS: METHADONE 10 MG TAB PO SCH (08:42)
[2019-05-28] MEDS: LORATADINE 10 MG TAB PO SCH (08:43)
[2019-05-28] MEDS: OLANZapine 5 MG TAB PO SCH ×3 (08:43→20:59)
[2019-05-28] MEDS: SERTRALINE 100 MG TAB PO SCH (08:43)
[2019-05-28] MEDS: GABAPENTIN 100 MG CAP PO SCH ×3 (08:44→21:00)
[2019-05-28] MEDS: ACETAMINOPHEN TAB 325 MG TAB PO PRN (08:44)
--- NOTE | 2019-05-28 14:46 | P.PN ---
Progress Note - Text Progress Note Date: 05/28/19 Subjective: Patient was seen today as a cross coverage for . The patient was evaluated, chart reviewed, case discussed with the treatment team. Patient reports feeling much better after started Neurontin yesterday. Medication helping with anxiety and pain on the patient reports her mood is relatively better. She reports continued to feel depressed and sleeping for long hours with lack of motivation. She is trying to go to more groups today. Patient denies any suicidal or homicidal ideation, and denies any hallucinations. She reports fair appetite today and motivation to go to more groups and activities. She continued to take her medications and he denies any side effects. Objective: Vitals has been reviewed. Mental status examination: Appearance: The patient appears stated age, adequately groomed and dressed, no specific features. Gait/posture: Normal gait, Normal arm swinging: No abnormal movements. Attitude and behavior: engaged, cooperative, eye contact. Motor activity: Normal psychomotor activity Speech: Normal rate, tone. Mood: Anxious, depressed Affect: Restricted Thought form: goal-directed, linear, coherent. Thought content: Non-delusional, denies suicidal thoughts, denies homicidal thoughts, denies intentions or plans. Perception: Denies any auditory or visual hallucinations Attention: No impairment. Orientation: Patient patient was fully oriented to time place person and situation. Insight: Patient has fair insight about her psychiatric disorder. Judgment: Patient has fair judgment about her psychiatric treatment. Assessment: Major depressive disorder, recurrent, moderate-severe without psychotic features. Panic disorder. PTSD. Opioid use disorder, on agonist therapy methadone maintenance treatment. Rule out cocaine use disorder. Rule out sedative-hypnotics use disorder. Plan: Continue inpatient level of care due to need for further treatment and stabilization provide psychiatric education regarding her diagnosis Precautions: Continue 15 minutes check for safety. Consider medical consultation if any acute medical issues arise. Provide the patient individual, group therapy, substance use disorder counseling to give better insight and learn coping skills. Medications: Continue Zoloft 200 mg daily for depression and anxiety symptoms. Continue trazodone 50 mg at bedtime to help with the depression and insomnia. Continue Zyprexa 5 mg 3 times a day 20 for mood stabilization. Patient is currently maintained on methadone 110 mg daily. Continue Vistaril 25 mg 3 times daily as needed for anxiety. Continue Neurontin 100 mg 3 times a day to help with anxiety symptoms and withdrawal symptoms. Discharge patient to OUTPATIENT services upon a stabilization
[2019-05-28] MEDS: traZODone HCL 50 MG TAB PO SCH (20:59)
[2019-05-29] MEDS: NICOTINE 21MG/24HR PATCH TRANSDERM SCH (08:39)
[2019-05-29] MEDS: LORATADINE 10 MG TAB PO SCH (08:39)
[2019-05-29] MEDS: SERTRALINE 100 MG TAB PO SCH (08:39)
[2019-05-29] MEDS: OLANZapine 5 MG TAB PO SCH (08:39)
[2019-05-29] MEDS: GABAPENTIN 100 MG CAP PO SCH ×3 (08:39→20:37)
[2019-05-29] MEDS: METHADONE 10 MG TAB PO SCH (08:40)
--- NOTE | 2019-05-29 11:38 | P.PN ---
Progress Note - Text Progress Note Date: 05/29/19 Interval History: Patient was seen today in her room and was directable and agreeable to speak to parts data writer. Patient appeared to be lethargic however was calm and cooperative with parts data writer. She states that "I'm still getting over my withdrawal symptoms" and states that she has been through withdrawals in the past and is having similar symptoms. She states that her energy is still low and has been sleeping through most of the day. She states that her mood has been gradually improving. Patient claims that she was abusing Xanax and crack which is purchasing off the streets. She states that she tried to go to 1 or 2 groups yesterday and found them helpful. At this time patient denies any suicidal or homical ideations, intent or plan. Patient denies any auditory, visual hallucinations and denies any paranoia or delusions. Patient denies any side effects from the medications and has been compliant with meds. Mental Status Exam: General Appearance: Patient appears to be stated age is alert, appears lethargic however is directable and attempts to cooperate. Marginal hygiene and grooming. Behavior: Patient is calmly seated without any agitated behavior. Appears lethargic. Speech: Patient's speech is fluent and nonpressured. Mood/Affect: Mood is improving mildly, affect is congruent and constricted. Suicidality/Homicidality: Patient denies having any suicidal or homicidal ideation intent or plan. Perceptions: Patient denies any visual hallucinations and denies any auditory hallucinations Though content/process: Poverty of content/speech. No delusions or preoccupations. Memory and concentration: AOX3, grossly intact for the purposes of this session Judgment and insight: Poor Assessment Major depressive disorder, recurrent, moderate-severe without psychotic features. Panic disorder. PTSD. Opioid use disorder, on agonist therapy methadone maintenance treatment. Cocaine abuse Sedative-hypnotics abuse Plan: -Patient continues to meet criteria for inpatient psychiatric admission for symptom stabilization and safety. Patient has signed adult voluntary form and m edication consent and was placed in patient's chart. -Medications: Continue with Zoloft 200 mg daily for mood/anxiety. Discontinued Zyprexa due to oversedation. Trazodone 50 mg daily at bedtime for mood/insomnia. Neurontin 100 mg 3 times a day for anxiety. Vistaril 25 mg every 6 hours when necessary for anxiety. -Patient is currently on methadone 110 mg daily as an agonist therapy for her opiate use disorder. -When necessary Geodon for agitation/aggression. -NRT - nicotine patch -SW on board for discharge planning.
[2019-05-29] MEDS: hydrOXYzine PAMOATE 25 MG CAP PO PRN (13:19)
[2019-05-29] MEDS: ACETAMINOPHEN TAB 325 MG TAB PO PRN ×2 (13:20→16:40)
[2019-05-29] MEDS: OLANZapine 2.5 MG TAB PO SCH (20:37)
[2019-05-29] MEDS: traZODone HCL 50 MG TAB PO SCH (20:37)
[2019-05-30] MEDS: METHADONE 10 MG TAB PO SCH (08:29)
[2019-05-30] MEDS: NICOTINE 21MG/24HR PATCH TRANSDERM SCH (08:29)
[2019-05-30] MEDS: SERTRALINE 100 MG TAB PO SCH (08:33)
[2019-05-30] MEDS: GABAPENTIN 100 MG CAP PO SCH ×3 (08:34→20:12)
[2019-05-30] MEDS: LORATADINE 10 MG TAB PO SCH (08:34)
[2019-05-30] MEDS ORDERED: hydrOXYzine PAMOATE 25 MG CAP PO PRN (09:41)
--- NOTE | 2019-05-30 10:00 | P.PN ---
Progress Note - Text Progress Note Date: 05/30/19 Interval History: Patient was seen today wandering the hallways and was directable and agreeable to speak to gag writer. Patient appeared to be more energetic today and was appropriate with gag writer during conversation. She states that she feels "less medicated today" stating that she has more energy this morning and feels that she is getting over her withdrawal symptoms. She states that her energy level has improved along with her mood. Patient continues to endorse anxiety and states that the Vistaril was helping mildly however requested to have it increased. Technologist Infectious Disease spoke with patient about prolonged symptoms of withdrawal from benzodiazepines and cocaine and how anxiety plays a significant role in that. Patient spoke about wanting to go to a sober house upon discharge and states that she needs to be with her son as well. Patient has not content he groups thus far however claims that she would like to go to groups today. At this time patient denies any suicidal or homical ideations, intent or plan. Patient denies any auditory, visual hallucinations and denies any paranoia or delusions. Patient denies any side effects from the medications and has been compliant with meds. Mental Status Exam: General Appearance: Patient appears to be stated age is alert, appears more energetic today, directable and attempts to cooperate. Marginal hygiene and grooming. Behavior: Patient is calmly seated without any agitated behavior. Speech: Patient's speech is fluent and nonpressured. Mood/Affect: Mood is improving mildly, affect is congruent and constricted. Suicidality/Homicidality: Patient denies having any suicidal or homicidal ideation intent or plan. Perceptions: Patient denies any visual hallucinations and denies any auditory hallucinations Though content/process: Poverty of content/speech. No delusions or preoccupations. Memory and concentration: AOX3, grossly intact for the purposes of this session Judgment and insight: Poor, mildly improving. Assessment Major depressive disorder, recurrent, moderate-severe without psychotic features. Panic disorder. PTSD. Opioid use disorder, on agonist therapy methadone maintenance treatment. Cocaine abuse Sedative-hypnotics abuse Plan: -Patient continues to meet criteria for inpatient psychiatric admission for symptom stabilization and safety. Patient has signed adult voluntary form and medication consent and was placed in patient's chart. -Medications: Continue with Zoloft 200 mg daily for mood/anxiety. Continue with Zyprexa 2.5 mg daily at bedtime for mood stabilization/insomnia. Trazodone 50 mg daily at bedtime for mood/insomnia. Neurontin 100 mg 3 times a day for anxiety. Increased Vistaril 50 mg every 8 hours when necessary for anxiety. -Patient is currently on methadone 110 mg daily as an agonist therapy for her opiate use disorder. -When necessary Geodon for agitation/aggression. -NRT - nicotine patch -SW on board for discharge planning. Encouraged patient to participate in milieu and attend groups. Will discuss with social sciences department chair patient's plan to live at a sober house and will inquire about methadone being available. Possible discharge in 1-2 days.
[2019-05-30] MEDS: ACETAMINOPHEN TAB 325 MG TAB PO PRN (13:23)
[2019-05-30] MEDS: traZODone HCL 50 MG TAB PO SCH (20:12)
[2019-05-30] MEDS: OLANZapine 2.5 MG TAB PO SCH (20:12)
[2019-05-31] MEDS: LORATADINE 10 MG TAB PO SCH (08:48)
[2019-05-31] MEDS: GABAPENTIN 100 MG CAP PO SCH ×3 (08:48→21:08)
[2019-05-31] MEDS: NICOTINE 21MG/24HR PATCH TRANSDERM SCH (08:48)
[2019-05-31] MEDS: SERTRALINE 100 MG TAB PO SCH (08:48)
[2019-05-31] MEDS: METHADONE 10 MG TAB PO SCH (08:49)
[2019-05-31] MEDS ORDERED: hydrOXYzine PAMOATE 25 MG CAP PO PRN (12:10)
--- NOTE | 2019-05-31 12:20 | P.PN ---
Progress Note - Text Progress Note Date: 05/31/19 Interval History: Patient was seen today wandering the hallways and was directable and agreeable to speak to program writer in the office. Patient appeared to be anxious this morning and brought her journal with her. Patient states that she had approximately 4 panic attacks since yesterday and described the different events. She described shortness of breath, racing heart sweaty palms and feelings of doom which lasted about 4-5 minutes. Patient states that she has been taking her medications and finding that the Vistaril has been helping however feels that her panic attacks are not controlled. She did state that she slept through the night however was awoken by a panic attack. She states that her mood is still depressed however is improving. Patient spoke about missing her son and wanting to go to his birthday democr[employer] this weekend. She spoke about going to groups regularly and try to participate as best as she can. At this time patient denies any suicidal or homical ideations, intent or plan. Patient denies any auditory, visual hallucinations and denies any paranoia or delusions. Patient denies any side effects from the medications and has been compliant with meds. Mental Status Exam: General Appearance: Patient appears to be stated age is alert, appears anxious today, directable and attempts to cooperate. Marginal hygiene and grooming. Behavior: Patient is calmly seated without any agitated behavior. Appears anxious. Speech: Patient's speech is fluent and nonpressured. Mood/Affect: Mood is depressed and anxious, affect is congruent Suicidality/Homicidality: Patient denies having any suicidal or homicidal ideation intent or plan. Perceptions: Patient denies any visual hallucinations and denies any auditory hallucinations Though content/process: No delusions or preoccupations. More organized and logical. Memory and concentration: AOX3, grossly intact for the purposes of this session Judgment and insight: mildly improving. Assessment Major depressive disorder, recurrent, moderate-severe without psychotic features. Panic disorder. PTSD. Opioid use disorder, on agonist therapy methadone maintenance treatment. Cocaine abuse Sedative-hypnotics abuse Plan: -Patient continues to meet criteria for inpatient psychiatric admission for symptom stabilization and safety. Patient has signed adult voluntary form and medication consent and was placed in patient's chart. -Medications: At this time will commence cross titration of Effexor XR with Zoloft. Will start Effexor today 37.5 mg daily for mood/anxiety. Decreased Zoloft 100 mg daily for mood/anxiety. Increased Zyprexa 5 mg daily at bedtime for mood stabilization/insomnia. Trazodone has been discontinued. Neurontin 100 mg 3 times a day for anxiety. Increased Vistaril 50 mg every 6 hours when necessary for anxiety. -Patient is currently on methadone 110 mg daily as an agonist therapy for her opiate use disorder. -When necessary Geodon for agitation/aggression. -NRT - nicotine patch -SW on board for discharge planning. Encouraged patient to participate in milieu and attend groups. Patient is continuing to pursue [facility] upon discharge. Likely discharge in 2-3 days.
[2019-05-31] MEDS: hydrOXYzine PAMOATE 25 MG CAP PO PRN ×2 (12:36→21:09)
[2019-05-31] MEDS: VENLAFAXINE HCL ER 37.5 MG CAP PO SCH (12:36)
[2019-05-31] MEDS: OLANZapine 5 MG TAB PO SCH (20:24)
[2019-05-31] MEDS: ACETAMINOPHEN TAB 325 MG TAB PO PRN (21:08)
[2019-06-01] MEDS: NICOTINE 21MG/24HR PATCH TRANSDERM SCH (08:36)
[2019-06-01] MEDS: GABAPENTIN 100 MG CAP PO SCH ×3 (08:36→21:07)
[2019-06-01] MEDS: VENLAFAXINE HCL ER 37.5 MG CAP PO SCH (08:36)
[2019-06-01] MEDS: LORATADINE 10 MG TAB PO SCH (08:36)
[2019-06-01] MEDS: METHADONE 10 MG TAB PO SCH (08:37)
[2019-06-01] MEDS ORDERED: SERTRALINE 100 MG TAB PO SCH (09:00)
--- NOTE | 2019-06-01 09:40 | P.PN ---
Progress Note - Text Progress Note Date: 06/01/19 Interval History: Patient was seen today in her room and was directable and agreeable to speak to scientific writer in the office. Patient appeared to be anxious again this morning states that she is having some racing thoughts in the morning. She states that her mood overall has been mildly improving on the medications and also states that she talked to her mom who states that it was a good idea for her to be on a different medication and is happy with going onto Effexor. She also states that she had one panic attack last night around 7:30 PM and states that she is trying to use her breathing techniques to suppress it. Patient states that she was able to sleep through the night without any problems. Patient continues to be focused on discharge and spoke about going to groups which are helping her stay busy throughout the day. Patient asked if she could have a smaller dose of Zyprexa during the day to help her with her anxiety and her mood. At this time patient denies any suicidal or homical ideations, intent or plan. Patient denies any auditory, visual hallucinations and denies any paranoia or delusions. Patient denies any side effects from the medications and has been compliant with meds. Mental Status Exam: General Appearance: Patient appears to be stated age is alert, appears anxious today, directable and attempts to cooperate. Marginal hygiene and grooming. Behavior: Patient is calmly seated without any agitated behavior. Appears anxious. Speech: Patient's speech is fluent and nonpressured. Mood/Affect: Mood is depressed and anxious, mildly improving, affect is congruent Suicidality/Homicidality: Patient denies having any suicidal or homicidal ideation intent or plan. Perceptions: Patient denies any visual hallucinations and denies any auditory hallucinations Though content/process: No delusions or preoccupations, organized and logical. Focused on discharge. Memory and concentration: AOX3, grossly intact for the purposes of this session Judgment and insight: mildly improving. Assessment Major depressive disorder, recurrent, moderate-severe without psychotic features. Panic disorder. PTSD. Opioid use disorder, on agonist therapy methadone maintenance treatment. Cocaine abuse Sedative-hypnotics abuse Plan: -Patient continues to meet criteria for inpatient psychiatric admission for symptom stabilization and safety. Patient has signed adult voluntary form and medication consent and was placed in patient's chart. -Medications: At this time continue with cross titration of Effexor XR with Zoloft. Will increase Effexor 75 mg daily for mood/anxiety. Decreased Zoloft 50 mg daily for mood/anxiety. Increased Zyprexa 2.5 mg daily + 5mg at bedtime for mood stabilization/insomnia. Neurontin 100 mg 3 times a day for anxiety. Continue with Vistaril 50 mg every 6 hours when necessary for anxiety. -Patient is currently on methadone 110 mg daily as an agonist therapy for her opiate use disorder. -When necessary [place] for agitation/aggression. -NRT - nicotine patch -SW on board for discharge planning. Encouraged patient to participate in [facility] and attend groups. Patient is continuing to pursue [facility] upon discharge. Likely discharge in 2-3 days.
[2019-06-01] MEDS: OLANZapine 2.5 MG TAB PO SCH (10:40)
[2019-06-01] MEDS: hydrOXYzine PAMOATE 25 MG CAP PO PRN ×2 (12:29→20:12)
[2019-06-01] MEDS: OLANZapine 5 MG TAB PO SCH (20:12)
[2019-06-01] MEDS: MAGNESIUM HYDROXIDE 2,400 MG/10 ML CUP PO PRN (21:07)
[2019-06-02] MEDS: GABAPENTIN 100 MG CAP PO SCH ×3 (08:33→20:17)
[2019-06-02] MEDS: METHADONE 10 MG TAB PO SCH (08:33)
[2019-06-02] MEDS: OLANZapine 2.5 MG TAB PO SCH (08:33)
[2019-06-02] MEDS: NICOTINE 21MG/24HR PATCH TRANSDERM SCH (08:33)
[2019-06-02] MEDS: LORATADINE 10 MG TAB PO SCH (08:33)
[2019-06-02] MEDS ORDERED: VENLAFAXINE HCL ER 75 MG CAP PO SCH (09:00)
[2019-06-02] MEDS ORDERED: SERTRALINE 50 MG TAB PO SCH (09:00)
--- NOTE | 2019-06-02 10:32 | P.PN ---
Progress Note - Text Progress Note Date: 06/02/19 Interval History: Patient was seen today attending group and was directable and agreeable to speak to loan underwriter in the office. Patient appeared to be mildly less anxious today and states that her mood has been gradually improving. At this time she is denying any side effects from medication and states that she had some anxiety yesterday however talk a Vistaril and felt much better. She states that her anxiety was provoked by speaking with her son over the phone and states that his birthday is this . Patient also stated that her aunt that she talked over the phone is also on Effexor and has really helped her so patient is more positive about the medication and agreeable to have it increased. Patient states that she was able to sleep through the night without any problems. Patient continues to be focused on discharge. She also states that she has been going to groups and finding them very beneficial for her. At this time patient denies any suicidal or homical ideations, intent or plan. Patient denies any auditory, visual hallucinations and denies any paranoia or delusions. Patient denies any side effects from the medications and has been compliant with meds. Mental Status Exam: General Appearance: Patient appears to be stated age is alert, appears less anxious today, directable and attempts to cooperate. Marginal hygiene and grooming. Behavior: Patient is calmly seated without any agitated behavior. Appears less anxious today. Speech: Patient's speech is fluent and nonpressured. Mood/Affect: Mood is mildly improving, affect is congruent Suicidality/Homicidality: Patient denies having any suicidal or homicidal ideation intent or plan. Perceptions: Patient denies any visual hallucinations and denies any auditory hallucinations Though content/process: No delusions or preoccupations, organized and logical. Focused on discharge. Memory and concentration: AOX3, grossly intact for the purposes of this session Judgment and insight: mildly improving. Assessment Major depressive disorder, recurrent, moderate-severe without psychotic features. Panic disorder. PTSD. Opioid use disorder, on agonist therapy methadone maintenance treatment. Cocaine abuse Sedative-hypnotics abuse Plan: -Patient continues to meet criteria for inpatient psychiatric admission for symptom stabilization and safety. Patient has signed adult voluntary form and medication consent and was placed in patient's chart. -Medications: At this time continue with cross titration of Effexor XR with Zoloft. Will increase Effexor 150 mg daily for mood/anxiety. Discontinue Zoloft at this time. Continue with Zyprexa 2.5 mg daily + 5mg at bedtime for mood stabilization/insomnia. Neurontin 100 mg 3 times a day for anxiety. Continue with Vistaril 50 mg every 6 hours when necessary for anxiety. -Patient is currently on methadone 110 mg daily as an agonist therapy for her opiate use disorder. -When necessary Geodon for agitation/aggression. -NRT - nicotine patch -SW on board for discharge planning. Encouraged patient to participate in milieu and attend groups. Patient patient has a spot at [facility] upon discharge. Likely discharge over the weekend.
[2019-06-02] MEDS: hydrOXYzine PAMOATE 25 MG CAP PO PRN ×2 (11:58→20:19)
[2019-06-02] MEDS: MAGNESIUM HYDROXIDE 2,400 MG/10 ML CUP PO PRN (11:58)
[2019-06-02] MEDS: ACETAMINOPHEN TAB 325 MG TAB PO PRN (11:59)
[2019-06-02 12:51] VITALS: BMI 32.0
[2019-06-02] MEDS: MAG HYDROX/AL HYDROX/SIMETH 30 ML CUP PO PRN (13:47)
[2019-06-02] MEDS: OLANZapine 5 MG TAB PO SCH (20:17)
[2019-06-03] MEDS: GABAPENTIN 100 MG CAP PO SCH ×3 (08:24→19:58)
[2019-06-03] MEDS: NICOTINE 21MG/24HR PATCH TRANSDERM SCH (08:26)
[2019-06-03] MEDS: OLANZapine 2.5 MG TAB PO SCH (08:26)
[2019-06-03] MEDS: LORATADINE 10 MG TAB PO SCH (08:26)
[2019-06-03] MEDS: VENLAFAXINE HCL ER 150 MG CAP PO SCH (08:27)
[2019-06-03] MEDS: METHADONE 10 MG TAB PO SCH (08:27)
[2019-06-03] MEDS: MAGNESIUM HYDROXIDE 2,400 MG/10 ML CUP PO PRN (08:27)
[2019-06-03] MEDS: hydrOXYzine PAMOATE 25 MG CAP PO PRN ×3 (08:27→20:00)
--- NOTE | 2019-06-03 11:21 | P.PN ---
Progress Note - Text Progress Note Date: 06/03/19 Interval History: Patient was seen today attending group and was directable and agreeable to speak to proposal manager writer in the office. Patient appeared to be less anxious today and states that she spoke with her mother over the phone last night and her mother gave her some bad news however patient states that she handled that well and claims that she was able to suppress her anxiety and she was very proud of herself. She states that her mood has been gradually improving on the medications and is thankful for being on the Effexor. Patient was more future oriented today and spoke about working on coping skills in group. She states that she did have some difficulties falling asleep last night and requests to be on melatonin. Patient continues to be focused on discharge. At this time patient denies any suicidal or homical ideations, intent or plan. Patient denies any auditory, visual hallucinations and denies any paranoia or delusions. Patient denies any side effects from the medications and has been compliant with meds. Mental Status Exam: General Appearance: Patient appears to be stated age is alert, appears less anxious today, directable and attempts to cooperate. Improved hygiene and grooming. Behavior: Patient is calmly seated without any agitated behavior. Speech: Patient's speech is fluent and nonpressured. Mood/Affect: Mood is improving, affect is congruent Suicidality/Homicidality: Patient denies having any suicidal or homicidal ideation intent or plan. Perceptions: Patient denies any visual hallucinations and denies any auditory hallucinations Though content/process: No delusions or preoccupations, organized and logical. More future oriented. Memory and concentration: AOX3, grossly intact for the purposes of this session Judgment and insight: improving. Assessment Major depressive disorder, recurrent, moderate-severe without psychotic features. Panic disorder. PTSD. Opioid use disorder, on agonist therapy methadone maintenance treatment. Cocaine abuse Sedative-hypnotics abuse Plan: -Patient continues to meet criteria for inpatient psychiatric admission for symptom stabilization and safety. Patient has signed adult voluntary form and medication consent and was placed in patient's chart. -Medications: Will continue with Effexor 150 mg daily for mood/anxiety. Continue with Zyprexa 2.5 mg daily + 5mg at bedtime for mood stabilization/insomnia. Neurontin 100 mg 3 times a day for anxiety. Continue with Vistaril 50 mg every 6 hours when necessary for anxiety. Added melatonin 3 mg daily at bedtime for insomnia. -Patient is currently on methadone 110 mg daily as an agonist therapy for her opiate use disorder. -When necessary [place] for agitation/aggression. -NRT - nicotine patch -SW on board for discharge planning. Encouraged patient to participate in milieu and attend groups. Patient patient has a spot at [facility] upon discharge. Likely discharge tomorrow.
[2019-06-03] MEDS: MAG HYDROX/AL HYDROX/SIMETH 30 ML CUP PO PRN (12:30)
[2019-06-03] MEDS: ACETAMINOPHEN TAB 325 MG TAB PO PRN (12:30)
[2019-06-03] MEDS ORDERED: BISACODYL 10 MG SUPP RECTAL STA (16:01)
[2019-06-03] MEDS ORDERED: BISACODYL 10 MG SUPP RECTAL PRN (16:06)
--- NOTE | 2019-06-03 17:03 | PN ---
PROGRESS NOTE This 28-year-old woman who was admitted with psychiatric issues is on methadone 110 mg. The patient complains of constipation. No chest pain. No palpitations. No fever. PHYSICAL EXAMINATION: Alert and oriented x3. The pulse is 61, blood pressure 134/65, respiration 20, temperature 98.4, pulse ox 98% on room air. HEENT: Conjunctivae normal. NECK: No jugular venous distention. CARDIOVASCULAR SYSTEM: S1, S2 muffled. RESPIRATORY SYSTEM: Breath sounds diminished at the bases. ABDOMEN: Soft, non-tender. NERVOUS SYSTEM: No focal deficit. LABS: AST 118, ALT is 99. Cholesterol is 220, LDL is 167, HDL is 37. ASSESSMENT: 1. Anxiety, depression. 2. Constipation secondary to methadone. 3. Seasonal allergies. 4. History of nicotine dependence. 5. Hypertension. 6. Hyperlipidemia. 7. Increased AST, ALT; possibly hepatitis. RECOMMENDATIONS AND DISCUSSION: I recommend to continue current medications, continue with the monitoring, continue symptomatic treatment. Recommend close followup with a primary physician in the outpatient setting regarding the abnormal labs. Otherwise, I would also recommend Colace 100 mg p.o. b.i.d. and dulcolax suppository p.r.n. while in the hospital. Once the patient is discharged, Colace 100 mg b.i.d. p.r.n. may be continued. Prescription was given. Further recommendations to follow. MMODL / IJN: [id number] /
[2019-06-03] MEDS: DOCUSATE 100 MG CAP PO SCH (19:58)
[2019-06-03] MEDS: OLANZapine 5 MG TAB PO SCH (19:58)
[2019-06-03] MEDS ORDERED: MELATONIN 3 MG TABLET PO SCH (21:00)
[2019-06-04 07:03] VITALS: BP 101/59; PULSE 66; RESP 18; TEMP 97.9
[2019-06-04] MEDS: VENLAFAXINE HCL ER 150 MG CAP PO SCH (08:30)
[2019-06-04] MEDS: LORATADINE 10 MG TAB PO SCH (08:30)
[2019-06-04] MEDS: GABAPENTIN 100 MG CAP PO SCH (08:30)
[2019-06-04] MEDS: DOCUSATE 100 MG CAP PO SCH (08:30)
[2019-06-04] MEDS: METHADONE 10 MG TAB PO SCH (08:30)
[2019-06-04] MEDS: OLANZapine 2.5 MG TAB PO SCH (08:30)
[2019-06-04] MEDS: NICOTINE 21MG/24HR PATCH TRANSDERM SCH (08:31)
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
== END 2019-06-04 10:50 | disposition home or self-care (01) | DRG 885 ==
LOC: EC 13:39 → 3MHU 17:28
PROVIDERS: ADMIT Psychiatry & Neurology Psychiatry; ATTEND Psychiatry & Neurology Psychiatry
DX: F33.2 Major depressive disorder, recurrent severe without psychotic features (principal); F13.10 Sedative, hypnotic or anxiolytic abuse, uncomplicated; F14.10 Cocaine abuse, uncomplicated; F17.210 Nicotine dependence, cigarettes, uncomplicated; F22 Delusional disorders; F41.0 Panic disorder [episodic paroxysmal anxiety]; F43.10 Post-traumatic stress disorder, unspecified; G40.909 Epilepsy, unspecified, not intractable, without status epilepticus; E78.5 Hyperlipidemia, unspecified; F11.10 Opioid abuse, uncomplicated; G47.00 Insomnia, unspecified; I10 Essential (primary) hypertension; J30.2 Other seasonal allergic rhinitis; K21.9 Gastro-esophageal reflux disease without esophagitis; K59.00 Constipation, unspecified; T42.4X2A Poisoning by benzodiazepines, intentional self-harm, initial encounter; Z79.899 Other long term (current) drug therapy; R03.0 Elevated blood-pressure reading, without diagnosis of hypertension; Z88.0 Allergy status to penicillin
CPT/HCPCS: 80053; 80061; 80306; 81001; 81025; 82075; 83036; 84443; 85025; 93005; 99285

== ENCOUNTER 2019-09-15 21:11 | Emergency (ER) | payer OTHER ==
--- NOTE | 2019-09-15 22:51 | ED ---
Upper Extremity HPI - General Chief Complaint: Extremity Injury, Upper Stated Complaint: Prison Clearance Time Seen by Provider: 09/15/19 21:27 Source: patient Mode of arrival: ambulatory Limitations: no limitations - History of Present Illness Initial Comments: Patient is a 29-year-old female here with police escort, presenting to the emergency Department with complaints of right wrist pain. Patient states she was being questioned by police and then ran from the police officers, was tackled and now she is complaining of right wrist injury. Please her in for medical clearance to be detained. She denies any suicidal or homicidal thoughts. She has no further complaints at this time. She is not being cooperative, she is declining to tell us about any medical history. She does admit to being a drug user. - Related Data Home Medications Medication Instructions Recorded Confirmed Loratadine 10 mg PO DAILY 05/25/19 05/25/19 Methadone HCl [Methadone Intensol] 112 mg PO DAILY 05/25/19 05/25/19 Previous Rx's Medication Instructions Recorded Gabapentin [Neurontin] 100 mg PO TID 30 Days cap 06/03/19 Melatonin 3 mg PO HS 30 Days tablet 06/03/19 Nicotine 21Mg/24Hr Patch [Habitrol] 1 patch TRANSDERM DAILY 14 Days 06/03/19 patch OLANZapine [ZyPREXA] 2.5 mg PO DAILY 30 Days tab 06/03/19 OLANZapine [ZyPREXA] 5 mg PO HS 30 Days tab 06/03/19 Venlafaxine HCl ER [Effexor XR] 150 mg PO DAILY 30 Days cap.er.24h 06/03/19 hydrOXYzine PAMOATE [Vistaril] 50 mg PO Q8HR PRN 28 Days cap 06/03/19 Allergies Allergy/AdvReac Type Severity Reaction Status Date / Time Penicillins Allergy Anaphylaxis Verified 09/15/19 21:27 Review of Systems ROS Statement: Those systems with pertinent positive or pertinent negative responses have been documented in the HPI. ROS Other: All systems not noted in ROS Statement are negative. Past Medical History Past Medical History: Seizure Disorder History of Any Multi-Drug Resistant Organisms: None Reported Past Surgical History: Adenoidectomy, Tonsillectomy Past Anesthesia/Blood Transfusion Reactions: No Reported Reaction Past Psychological History: Anxiety, Bipolar, Depression Smoking Status: Current every day smoker Past Alcohol Use History: Rare Past Drug Use History: Methamphetamine, Opiates General Exam - General Exam Comments Initial Comments: GENERAL: Patient appears anxious, and in no acute distress. HEAD: Atraumatic, normocephalic. EYES: Pupils equal round and reactive to light, extraocular movements intact, sclera anicteric, conjunctiva are normal. ENT: TMs normal, nares patent, oropharynx clear without exudates. Moist mucous membranes. NECK: Normal range of motion, supple without lymphadenopathy or JVD. LUNGS: Breath sounds clear to auscultation bilaterally and equal. No wheezes rales or rhonchi. HEART: Regular rate and rhythm without murmurs, rubs or gallops. ABDOMEN: Soft, nontender, normoactive bowel sounds. No guarding, no rebound. No masses appreciated. : Deferred EXTREMITIES: Pain with palpation of the right wrist. Patient is unwilling to try to move the wrist. It is no obvious swelling, obvious deformity. Neurovascular intact. No pitting or edema. No clubbing or cyanosis. NEUROLOGICAL: Normal speech, normal gait. PSYCH: Anxious, not cooperative. SKIN: Warm, Dry, normal turgor, no rashes or lesions noted. Limitations: no limitations Course Vital Signs 09/15/19 09/15/19 21:14 23:35 Temperature 99.2 F 99.0 F Pulse Rate 130 H 92 Respiratory 20 16 Rate Blood Pressure 119/74 126/87 O2 Sat by Pulse 96 98 Oximetry Medical Decision Making - Medical Decision Making Patient is a 29-year-old female brought in by police for medical clearance for [facility]. She was tackled to the ground complaining of right wrist pain. X-rays of the right wrist reveal no acute fractures dislocations. After I discussed this with the patient she immediately stated she started having chest pain and that she was . We did do an EKG which showed no acute abnormalities. Patient is refusing to give us a urine sample. Patient continues to be noncooperative in the ER, yelling and screaming. Patient is discharged into police custody. She is medically clear for [facility]. They will obtain a blood or urine at the [facility] to check for . - EKG Data EKG Comments: Normal sinus rhythm with sinus arrhythmia, no signs of acute ischemia, ventricular rate 90, NC interval 134, QT 344. Disposition Clinical Impression: Right wrist pain Disposition: HOME SELF-CARE Condition: Stable Instructions (If sedation given, give patient instructions): Wrist Injury (ED) Additional Instructions: Please return to the Emergency Department if symptoms worsen or any other concerns. Ice to the wrist as well as ibuprofen for discomfort. Is patient prescribed a controlled substance at d/c from ED?: No Referrals: Yasmine Patiño MD [Primary Care Provider] - 1-2 days
--- NOTE | 2019-09-15 22:59 | XR ---
EXAMINATION TYPE: XR wrist limited RT DATE OF EXAM: 09/15/2019 COMPARISON: NONE HISTORY: Wrist pain TECHNIQUE: 2 views FINDINGS: I see no fracture nor dislocation. Joint spaces appear normal. Soft tissues appear normal. IMPRESSION: Negative right wrist exam.
[2019-09-15 23:37] VITALS: BP 126/87; PULSE 92; RESP 16; TEMP 99
== END 2019-09-15 23:35 | disposition home or self-care (01) ==
LOC: EC 21:11
DX: M25.531 Pain in right wrist (principal); F17.200 Nicotine dependence, unspecified, uncomplicated; Z79.899 Other long term (current) drug therapy; Z88.0 Allergy status to penicillin
CPT/HCPCS: 93005; 99283

== ENCOUNTER 2023-05-01 14:50 | Emergency (ER) | payer OTHER ==
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
[2023-05-01] MEDS: LORazepam 1 MG TAB PO STA ×2 (17:09→19:00)
[2023-05-01] MEDS: ACETAMINOPHEN TAB 500 MG TAB PO STA (19:42)
[2023-05-02] MEDS: LORazepam 1 MG TAB PO STA ×2 (00:22→08:21)
[2023-05-02 01:27] LABS: Amphetamine Screen,Urine Not Detected (NotDetected); Barbiturate Screen,Urine Not Detected (NotDetected); Benzodiazepines Screen,Urine Detected (NotDetected); Cocaine Screen,Urine Detected (NotDetected); Methadone Screen, Urine Not Detected (NotDetected); Opiate Screen,Urine Detected (NotDetected); Oxycodone Screen, Urine Detected (NotDetected); Phencyclidine Screen,Urine Not Detected (NotDetected); Tricyclic Antidepressant,Urine Not Detected (NotDetected); Urn Cannabinoid Scrn Detected (NotDetected)
[2023-05-02 06:22] LABS: Appearance,Urine Turbid (Clear); Bacteria,Urine Many /hpf; Bilirubin,Urine Negative (Negative); Blood,Urine Moderate (Negative); Calcium Oxalate Crystals,Urine Many /hpf; Color,Urine Yellow; Glucose,Urine (UA) Negative (Negative); Ketones,Urine Negative (Negative); Leukocyte Esterase,Urine Small (Negative); Mucus,Urine Moderate /hpf; Nitrite,Urine Negative (Negative); Protein,Urine 1+ (Negative); RBC,Urine 4 /hpf (0-5); Specific Gravity,Urine 1.035 (1.001-1.035); Squamous Epithelial Cell,Urine 127 /hpf (0-4); Urobilinogen,Urine <2.0 mg/dL (<2.0); WBC,Urine 57 /hpf (0-5)
[2023-05-02 10:45] VITALS: BP 116/80; PULSE 100; RESP 18; TEMP 98.1
== END 2023-05-02 10:11 ==
LOC: EC 14:50
DX: F32.A Depression, unspecified (principal); F17.200 Nicotine dependence, unspecified, uncomplicated; F15.90 Other stimulant use, unspecified, uncomplicated; F11.90 Opioid use, unspecified, uncomplicated; Z20.822 Contact with and (suspected) exposure to COVID-19
CPT/HCPCS: 80306; 81001; 82075; 87635; 99285